=== PATIENT | female | born 2000 | race African-American/Black ===

== ENCOUNTER 2018-09-20 06:33 | Inpatient (IN) | payer OTHER ==
[2018-09-20] MEDS ORDERED: Diphenoxylate HCl/Atropine Tablet PO PRN ×2 (06:55)
[2018-09-20] MEDS ORDERED: Butorphanol Tartrate 1 MG/ML VIAL SLOW IVP PRN (06:55)
[2018-09-20] MEDS ORDERED: Ondansetron PF 4 MG/2 ML Vial IVP PRN (06:55)
[2018-09-20] MEDS ORDERED: Ibuprofen 800 MG TAB PO PRN (06:55)
[2018-09-20] MEDS ORDERED: Lidocaine 1% (PF) 30 ML VIAL SC PRN (06:55)
[2018-09-20] MEDS ORDERED: Promethazine HCl 25 MG/ML VIAL IM PRN (06:55)
[2018-09-20] MEDS ORDERED: Methylergonovine 0.2 MG/ML VIAL IM PRN (06:55)
[2018-09-20] MEDS ORDERED: HYDROcodone/Acetaminophen 5/325 mg Tablet PO PRN ×2 (06:55→11:28)
[2018-09-20] MEDS ORDERED: Misoprostol 200 MCG TAB PR PRN (06:55)
[2018-09-20] MEDS ORDERED: Carboprost 250 MCG/ML AMP IM PRN (06:55)
[2018-09-20] MEDS ORDERED: Acetaminophen 500 MG TAB PO PRN (06:55)
[2018-09-20] MEDS ORDERED: NS w/ Oxytocin 10 units 500 ML IV SCH (07:00)
[2018-09-20] MEDS: Lactated Ringer's 1,000 ML IV SCH ×2 (07:05→08:19)
[2018-09-20 07:16] VITALS: BMI 31.3
[2018-09-20 07:27] LABS: Hemoglobin 10.9 g/dL (12.0-16.0); Mean Corpuscular HGB CONC 33.8 g/dL (32.0-36.0); Mean Corpuscular Hemoglobin 29.4 pg (25.0-35.0); Mean Corpuscular Volume 87.2 fL (78.0-98.0); Mean Platelet Volume 8.5 fL (7.4-10.4); Platelet Count 237 thou/uL (130-400); RBC Distribution Width 13.2 % (11.5-14.5); Red Blood Cell (RBC) Count 3.69 mill/uL (4.00-5.20); White Blood Cell (WBC) Count 9.9 thou/uL (4.8-10.8)
[2018-09-20] MEDS ORDERED: Fentanyl 4 mcg/Bup 0.1% Cadd 100 ML ONE (07:45)
--- NOTE | 2018-09-20 08:06 | PDOC.LDHP ---
Labor and Delivery H&P Chief complaint: scheduled induction HPI: 18 yo @ 39w4d by 7 week sono who presents for IOL. UDS + THC in early , otherwise, antepartum course benign. Due date: 09/23/18 Dating criteria: first trimester ultrasound Grav: 3 Para: 2 OB History Details: 2 term uncomplicated SVDs Current complications: none Abnormal US findings: No Past Medical History: Denies Current medications: pre-radha vitamins Previous surgical history: none Allergies/Adverse Reactions: Allergies Allergy/AdvReac Type Severity Reaction Status Date / Time amoxicillin Allergy Verified 10/29/14 01:08 Penicillins Allergy Verified 10/29/14 01:08 Social history: drug use (THC in early , none since.) - Physical Exam Vital signs reviewed and normal: yes General: NAD Heart: RRR Lungs: nonlabored breathing Abdomen: gravid Extremeties: no edema FHT: category 1 (130s, mod aida, +accels, no decels) [place] contractions every: not adequately assessing - Vaginal Exam cm dilated: 5 Effacement: 75% Station: -1 - OB Labs Blood type: O RH: positive Antibody Screen: negative HIV: negative RPR: negative HEPSAg: negative 1 hour GCT: negative GBS: negative Urine drug screen: positive (+ THC in early ) Rubella: immune - Assessment 39w4d IUP EIOL THC use in early - Plan Plan: admit to L&D, labor augmentation if indicated, informed consent obtained, anesthesia consult for pain management -: Plan for AROM and pitocin.
[2018-09-20 08:09] LABS: Syphilis Antibody Nonreactive (Nonreactive); Syphilis Antibody Index 0.04 S/CO (<1.00 Non-Reactive)
[2018-09-20 08:10] LABS: HBSAg Index 0.16 S/CO (0-0.99); HIV (1/2) Antibody/Antigen Non-Reactive (NonReactive); HIV 1/2 INDEX 0.06 S/CO (<1.00); Hep B Surf Ag Non-Reactive S/CO (NonReactive)
[2018-09-20 09:26] LABS: Amphetamine Not Detected (NotDetected); Barbiturates Screen Not Detected (NotDetected); Benzodiazepine Screen Not Detected (NotDetected); Cocaine Metabolite Screen Not Detected (NotDetected); Medtox Reader # READER 1; Methadone Not Detected (NotDetected); Methamphetamine Not Detected (NotDetected); Opiate Screen Not Detected (NotDetected); Oxycodone Screen Not Detected (NotDetected); Phencyclidine (PCP) Not Detected (NotDetected); THC/Cannabinoid Screen Not Detected (NotDetected); Tricyclic Screen Not Detected (NotDetected)
[2018-09-20 09:27] LABS: Medtox Control Line Valid? VALID (VALID)
[2018-09-20] MEDS: NS / Oxytocin 40 units/1000ml 1,000 ML IV PRN ×2 (10:42→11:22)
--- NOTE | 2018-09-20 10:48 | PDOC.OPDEL ---
OB Operative/Delivery Note Delivery Dr/Surgeon: Mary Alice Peters DO Pre-Delivery Diagnosis: elective induction Procedure/Post Delivery Dx: spontaneous vaginal delivery Weeks gestation: 39 Anesthesia: epidural - Findings A Sex: male - 1 min: 8 - 5 min: 9 - Additional Findings/Plan Placenta delivered: spontaneous Repaired Obstetrical Laceration: none Estimated blood loss: QBL 208 cc Compilations/Other Findings: in cephalic presentation Nuchal cord x 1 Normal appearing placenta. Clear amniotic fluid Post delivery plan: routine recovery
[2018-09-20] MEDS ORDERED: NS / Oxytocin 40 units/1000ml 1,000 ML IV SCH (11:28)
[2018-09-20] MEDS ORDERED: Bisacodyl 10 MG SUPP PR PRN (11:28)
[2018-09-20] MEDS ORDERED: Milk Of Magnesia 30 ML UDCUP PO PRN (11:28)
[2018-09-20] MEDS ORDERED: Benzocaine/Menthol 20-0.5% 60 ML CAN TOP PRN (11:28)
[2018-09-20] MEDS: Ibuprofen 800 MG TAB PO SCH ×2 (14:37→21:18)
[2018-09-20] MEDS: Ferrous Sulfate 325 MG TAB PO SCH (16:55)
[2018-09-20] MEDS: Docusate Calcium (SURFAK) 240 MG CAP PO SCH (21:17)
[2018-09-21] MEDS: Ibuprofen 800 MG TAB PO SCH ×2 (05:25→14:17)
[2018-09-21 07:09] LABS: Hemoglobin 9.7 g/dL (12.0-16.0); Mean Corpuscular Hemoglobin 29.1 pg (25.0-35.0); Mean Corpuscular Volume 88.2 fL (78.0-98.0); Mean Platelet Volume 8.3 fL (7.4-10.4); Platelet Count 188 thou/uL (130-400); RBC Distribution Width 13.1 % (11.5-14.5); Red Blood Cell (RBC) Count 3.31 mill/uL (4.00-5.20); White Blood Cell (WBC) Count 9.2 thou/uL (4.8-10.8)
--- NOTE | 2018-09-21 07:15 | DIS ---
DATE OF ADMISSION: 09/20/2018 DATE OF DISCHARGE: 09/21/2018 PRIMARY OB: Dr. Mary Alice Peters. ADMITTING DIAGNOSES: 1. Intrauterine at 39 weeks. 2. Induction of labor. DISCHARGE DIAGNOSES: 1. Intrauterine at 39 weeks. 2. Induction of labor. PROCEDURE: Term spontaneous vaginal delivery. CONSULTATIONS: None. HOSPITAL COURSE: The patient is a 18-year-old G3, now P3 female, who was admitted at 39 weeks and 4 days, yesterday for induction of labor. Her induction resulted in an uncomplicated term spontaneous vaginal delivery. For complete details, please refer to the delivery note. Today is day 1, the patient reports that she is feeling well, ambulating, tolerating p.o., having decreased lochia and good pain control, and desires discharge home. PHYSICAL EXAMINATION: VITAL SIGNS: Most recent blood pressure of 119/70, temperature 98.1, pulse of 74, respiratory rate of 18. GENERAL: She appears to be in no acute distress. She is alert, oriented, cooperative, pleasant to interact with. HEENT: Head, normocephalic and atraumatic. ABDOMEN: Soft. Fundus is firm. EXTREMITIES: Symmetrical and nontender. LABORATORY DATA: Post delivery hemoglobin, not obtained. The patient will be discharged to home with ibuprofen as needed for pain control with instructions to follow up with Dr. Peters in 6 weeks. She has also been given instructions to seek medical attention sooner if she were to experience fever, increasing pain, or bleeding. Job ID: [id number]
[2018-09-21 07:59] VITALS: BP 117/60; TEMP 98.5
[2018-09-21] MEDS ORDERED: Prenatal Vitamin 1 TAB PO SCH (09:00)
[2018-09-21] MEDS: Ferrous Sulfate 325 MG TAB PO SCH (09:35)
[2018-09-21] MEDS: Docusate Calcium (SURFAK) 240 MG CAP PO SCH (09:49)
== END 2018-09-21 17:45 | disposition home or self-care (01) | DRG 807 ==
LOC: L&D 06:33 → 3SW 13:06
PROVIDERS: ADMIT Obstetrics & Gynecology; ATTEND Obstetrics & Gynecology
PROC: 10E0XZZ Delivery of Products of Conception, External Approach (ICD-10-PCS; principal; 2018-09-20)
PROC: 10907ZC Drainage of Amniotic Fluid, Therapeutic from Products of Conception, Via Natural or Artificial Opening (ICD-10-PCS; 2018-09-20)
PROC: 3E033VJ Introduction of Other Hormone into Peripheral Vein, Percutaneous Approach (ICD-10-PCS; 2018-09-20)
DX: O99.324 Drug use complicating childbirth (principal); Z37.0 Single live birth; F12.90 Cannabis use, unspecified, uncomplicated; Z3A.39 39 weeks gestation of pregnancy; O69.81X0 Labor and delivery complicated by cord around neck, without compression, not applicable or unspecified
CPT/HCPCS: 36415; 51702; 80306; 85027; 86780; 86850; 86900; 86901; 87340; 87389